=== PATIENT | female | born 1960 | race Asian ===

== ENCOUNTER 2025-07-27 20:49 | Emergency (ER) | payer MEDICAID ==
[~2025-07-27] VITALS: Ht 152.4 cm; Wt 59.1 kg
[2025-07-27] MEDS ORDERED: iohexol 300mg/ml 100ml inj. ONE (21:09)
--- NOTE | 2025-07-27 21:10 | ELECTROCARDIOGRAPH REPORT ---
[facility] Test Date: 2025-07-27 Test Time: 21:07:01 Pat Name: NORAMN BRANDT Department: [facility]- Patient ID: [id number] Room: Gender: F Staff Reporter: EFRAIN : 1960 Requested By: YONNY LYNNE Order Number: [id number] Reading MD: Dr. Jefe Dennis Measurements Intervals [place] Rate: 87 P: 77 W[place]: 146 QRS: 82 QRSD: 91 T: 51 QT: 395 QTc: 476 Interpretive Statements Sinus rhythm Abnormal R-wave progression, early transition Probable inferior infarct, old Baseline wander in lead(s) V4 Electronically Signed On 07-30-2025 9:40:[address] Jefe Dennis Please click the below link to view image of tracing.
[2025-07-27] MEDS: ondansetron/PF 4mg/2ml inj IV ONE (21:23)
[2025-07-27] MEDS: morphine 4 MG/ML inj SYRINge IV ONE (21:23)
[2025-07-27 21:27] LABS: MEAN PLATELET VOLUME 8.6 FL (7.4-10.4); RED CELL DISTRIBUTION WIDTH 13.4 % (11.5-14.5)
[2025-07-27 21:40] LABS: APTT 25 SECONDS (22-32); INR 1.0 INR
[2025-07-27 21:48] LABS: CREATININE 1.18 MG/DL (0.40-0.90); ETHANOL < 10 MG/DL (<10); TOTAL CARBON DIOXIDE 25.5 MMOL/L (24-32); eCRCL 35 ML/MIN; eGFR 46 ML/MIN
[2025-07-27] MEDS: acetaminophen 1,000mg/100ml IV 100 ML IV ONE (22:44)
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
[2025-07-28 02:00] VITALS: BP 119/71; PULSE 87; RESP 16; TEMP 99; O2SAT 94
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
== END 2025-07-28 02:10 | disposition home or self-care (01) ==
LOC: ER 20:51
DX: S22.31XA Fracture of one rib, right side, initial encounter for closed fracture (principal); S22.20XA Unspecified fracture of sternum, initial encounter for closed fracture; G89.11 Acute pain due to trauma; R07.89 Other chest pain; M54.2 Cervicalgia; M79.651 Pain in right thigh; V49.9XXA Car occupant (driver) (passenger) injured in unspecified traffic accident, initial encounter; Y93.89 Activity, other specified; Y92.89 Other specified places as the place of occurrence of the external cause; Y99.8 Other external cause status
CPT/HCPCS: 36415; 70450; 71260; 72125; 73552; 74177; 80053; 80320; 82550; 83690; 84484; 85025; 85610; 85730; 93005; 96365; 96375; 99285; J0131; J2270; J2405; Q9967